=== PATIENT | male | born 1965 | race Caucasian/White ===

== ENCOUNTER 2016-09-11 18:09 | Inpatient (IN) | payer MEDICARE, MEDICAID ==
[~2016-09-11] VITALS: Ht 175.3 cm; Wt 89.2 kg
[~2016-09-11 18:09] MED LIST: ASPIRIN EC81 MG PO
[2016-09-11 20:06] LABS: BUN/CREATININE RATIO 35 (0-10)
[2016-09-11] MEDS ORDERED: COREG 3.125M3.125 MG PO (20:51)
[2016-09-11] MEDS ORDERED: CLINDAMYCIN HC300 MG PO (20:51)
[2016-09-11] MEDS ORDERED: ZANTAC 150 MG150 MG PO (20:52)
[2016-09-11] MEDS ORDERED: LANOXIN TAB0.125 MG PO (20:53)
[2016-09-11] MEDS ORDERED: LASIX 40 MG TAB40 MG PO (20:54)
[2016-09-11] MEDS ORDERED: ALDACTONE 25MG25 MG PO (20:54)
[2016-09-11] MEDS ORDERED: METOLAZONE2.5 MG PO (20:55)
[2016-09-11] MEDS ORDERED: ELIQUIS5 MG PO (20:55)
[2016-09-11] MEDS ORDERED: LISINOPRIL5 MG PO (20:55)
[2016-09-11] MEDS ORDERED: IPRAT-ALBUT 0.5-3 ML INH (20:56)
[2016-09-11] MEDS ORDERED: LIPITOR TAB 2020 MG PO (20:57)
[2016-09-12 02:27] LABS: HEMOGLOBIN 13.7 gm/dl (14.0-17.5); RED BLOOD COUNT 4.65 M/UL (4.20-5.50)
[2016-09-12 02:39] LABS: BUN/CREATININE RATIO 31 (0-10)
[2016-09-14 03:39] LABS: HEMOGLOBIN 14.1 gm/dl (14.0-17.5); RED BLOOD COUNT 4.77 M/UL (4.20-5.50)
[2016-09-14 03:46] LABS: WHITE BLOOD COUNT 7.6 K/UL (4.5-11.0)
[2016-09-15 05:39] LABS: BUN/CREATININE RATIO 32 (0-10)
[2016-09-16 05:50] LABS: HEMOGLOBIN 14.4 gm/dl (14.0-17.5); RED BLOOD COUNT 4.91 M/UL (4.20-5.50); WHITE BLOOD COUNT 8.3 K/UL (4.5-11.0)
[2016-09-16 06:23] LABS: BUN/CREATININE RATIO 31 (0-10)
[2016-09-17 05:52] LABS: HEMOGLOBIN 14.9 gm/dl (14.0-17.5); RED BLOOD COUNT 5.08 M/UL (4.20-5.50); WHITE BLOOD COUNT 7.2 K/UL (4.5-11.0)
[2016-09-17 06:15] LABS: BUN/CREATININE RATIO 26 (0-10)
== END 2016-09-17 17:51 | disposition home or self-care (01) | DRG 291 ==
LOC: PROG CARE 19:40 → MED SURG 4 09-17 02:12
PROVIDERS: Hospitalist; ADMIT Internal Medicine Infectious Disease
PROC: 5A09357 Assistance with Respiratory Ventilation, Less than 24 Consecutive Hours, Continuous Positive Airway Pressure (ICD-10-PCS; principal; 2016-09-11)
DX: I13.0 Hypertensive heart and chronic kidney disease with heart failure and stage 1 through stage 4 chronic kidney disease, or unspecified chronic kidney disease (principal); J96.21 Acute and chronic respiratory failure with hypoxia; I50.43 Acute on chronic combined systolic (congestive) and diastolic (congestive) heart failure; N17.9 Acute kidney failure, unspecified; E87.1 Hypo-osmolality and hyponatremia; J98.11 Atelectasis; M62.82 Rhabdomyolysis; I48.92 Unspecified atrial flutter; I42.0 Dilated cardiomyopathy; I25.5 Ischemic cardiomyopathy; I25.10 Atherosclerotic heart disease of native coronary artery without angina pectoris; N18.9 Chronic kidney disease, unspecified; E87.6 Hypokalemia; D69.6 Thrombocytopenia, unspecified; I27.2 Other secondary pulmonary hypertension; E78.5 Hyperlipidemia, unspecified; K76.1 Chronic passive congestion of liver; F17.210 Nicotine dependence, cigarettes, uncomplicated; R23.8 Other skin changes; G89.29 Other chronic pain; M25.50 Pain in unspecified joint; E66.9 Obesity, unspecified; Z95.1 Presence of aortocoronary bypass graft; Z95.810 Presence of automatic (implantable) cardiac defibrillator; Z86.711 Personal history of pulmonary embolism; Z91.14 Patient's other noncompliance with medication regimen; Z59.6 Low income; Z72.3 Lack of physical exercise; Z99.81 Dependence on supplemental oxygen; Z79.01 Long term (current) use of anticoagulants; Z79.82 Long term (current) use of aspirin; Z68.29 Body mass index [BMI] 29.0-29.9, adult; Z79.899 Other long term (current) drug therapy; Z88.3 Allergy status to other anti-infective agents; Z88.5 Allergy status to narcotic agent; Z98.890 Other specified postprocedural states; Z82.49 Family history of ischemic heart disease and other diseases of the circulatory system
CPT/HCPCS: ECHO; 36415; 36600; 71010; 71020; 80048; 80053; 80061; 80307; 82550; 82553; 82803; 83735; 83880; 84132; 84443; 84484; 85025; 85027; 93005; 93306; 94640; 94660; J1250; J1940; J3480